=== PATIENT | male | born 2000 | race Caucasian/White ===

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

== ENCOUNTER 2020-07-06 14:36 | Outpatient (CLI) | payer MEDICAID | END 2020-07-06 23:59 | disposition home or self-care (01) | LOC: RT 14:36 | PROVIDERS: ATTEND Pediatrics | DX: R00.9 Unspecified abnormalities of heart beat (principal) | CPT/HCPCS: 93005 ==

== ENCOUNTER 2022-08-09 22:39 | Emergency (ER) | payer MEDICAID ==
--- NOTE | 2022-08-09 23:30 | ED Physician Documentation ---
PD HPI CHEST PAIN - Stated complaint Stated Complaint: CHEST TIGHTNESS,SOA - Chief complaint Chief Complaint: Resp - History obtained from History obtained from: Patient - Additional information Additional information: The patient comes to the emergency department chief complaint of episode of chest tightness and shortness of breath with tingling in his hands on and off for the last couple days. Patient has history of asthma, has not used his inhaler. No fever or chills. No edema in his lower extremities. No calf pain. The patient is otherwise fairly healthy. He does have a history of anxiety and is felt somewhat anxious but this does not feel like his usual anxiety attacks. No other complaints at this time. Review of Systems Constitutional: reports: Reviewed and negative Eyes: reports: Reviewed and negative Ears: reports: Reviewed and negative Nose: reports: Reviewed and negative Throat: reports: Reviewed and negative Cardiac: reports: Chest pain / pressure Respiratory: reports: Dyspnea GI: reports: Reviewed and negative : reports: Reviewed and negative Skin: reports: Reviewed and negative Musculoskeletal: reports: Reviewed and negative Neurologic: reports: Reviewed and negative Psychiatric: reports: Reviewed and negative Endocrine: reports: Reviewed and negative Immunocompromised: reports: Reviewed and negative PD PAST MEDICAL HISTORY - Past Medical History Respiratory: Asthma - Past Surgical History Past Surgical History: Yes HEENT: Myringotomy (tubes) - Present Medications Home Medications: Ambulatory Orders Medication Instructions Recorded Confirmed Albuterol Sulfate [Albuterol PRN 05/09/14 05/09/14 Sulfate Hfa] - Allergies Allergies/Adverse Reactions: Allergies Allergy/AdvReac Type Severity Reaction Status Date / Time amoxicillin [Amoxicillin] Allergy Rash Verified 08/09/22 22:54 Penicillins Allergy Rash Verified 08/09/22 22:54 - Social History Does the pt smoke?: No Smoking Status: Never smoker Does the pt drink ETOH?: No Does the pt have substance abuse?: No - Immunizations Immunizations are current?: Yes PD ED PE NORMAL - Vitals Vital signs reviewed: Yes - General General: Alert and oriented X 3, No acute distress, Well developed/nourished - HEENT HEENT: Atraumatic, PERRL, EOMI, Moist mucous membranes - Neck Neck: Supple, no meningeal sign - Cardiac Cardiac: RRR, No murmur, Strong equal pulses - Respiratory Respiratory: No respiratory distress, Clear bilaterally - Abdomen Abdomen: Soft, Non tender, Non distended - Derm Derm: Normal color, Warm and dry, No rash - Extremities Extremities: No deformity, No edema, No calf tenderness / cord - Neuro Neuro: Alert and oriented X 3 - Psych Psych: Normal mood, Normal affect Results - Vitals Vitals: Oxygen O2 Source Room air - EKG (time done) 2303 Rate: Rate (enter#) (51) Rhythm: NSR [place]: Normal Intervals: Normal IN QRS: Normal Ischemia: Normal ST segments, Non specific changes Compare to prior EKG: Old EKG unavailable Computer interpretation: Agree with computer - Rads (name of study) Chest x-ray Radiology: Final report received, See rad report PD Medical Decision Making - ED course Complexity details: reviewed results, re-evaluated patient, considered differential, d/w patient ED course: I discussed with the patient that His level of risk for coronary artery disease is exceedingly low, and his EKG and chest x-ray look good. We have discussed that the patient does not have a strong likelihood indicators for any of the ot her emergent causes of chest discomfort. We have discussed home management of the symptoms, the need for follow-up, and the usual indications for return. Departure - Departure Disposition: 01 Home, Self Care Clinical Impression: Anxiety Chest pain Qualifiers: Chest pain type: unspecified Qualified Code(s): R07.9 - Chest pain, unspecified Condition: Stable Instructions: ED Chest Pain NonCardiac, ED Heart Disease Risk Factors, ED Panic Attack Comments: Your EKG and chest x-ray both look great. There is no evidence of a serious or emergent cause of your chest discomfort at this time. It is not clear exactly what is causing the symptoms, although certainly, anxiety could be a very possible explanation. As we discussed, you are very low risk for both a heart attack and blood clot formation, just based on your age alone, but even aside from that, based on your lack of other risk factors as well. Any of the emergent causes of chest pain generally declare themselves very quickly, often with devastating consequences. As such, it would be nearly impossible for your symptoms to go on for months on and without a serious decline in your health, and without any changes on your x-ray or EKG. At this point, as we have discussed, you need to follow-up with your primary care physician to talk about where to go from here. It may be that you need to be on some medication for anxiety, or it may be that your doctor will recommend a stress test and an endoscopy, which would be the next 2 tests to evaluate chest pain after being seen in the emergency department. Again, given your very low risk for coronary artery disease, a stress test is unlikely to yield any helpful information in your age group, as it will almost certainly be negative, but this is something that you can discuss with your primary doctor if you wish. Discharge Date/Time: 08/10/22 00:01
--- NOTE | 2022-08-09 23:40 | XRAY Report ---
PROCEDURE: Chest 1 View X-Ray INDICATIONS: dyspnea TECHNIQUE: One view of the chest was acquired. COMPARISON: None. FINDINGS: Surgical changes and devices: None. Lungs and pleura: No pleural effusions or pneumothorax. Lungs are clear. Mediastinum: Mediastinal contours appear normal. Heart size is normal. Bones and chest wall: No suspicious bony lesions. Overlying soft tissues appear unremarkable. IMPRESSION: 1. No acute cardiopulmonary disease. Reviewed by: Lukas Quiroga MD on 08/09/2022 11:39 PM [facility] Approved by: Lukas Quiroga MD on 08/09/2022 11:39 PM [facility] Station ID: [id number]
[2022-08-10 00:06] VITALS: BP 128/81
== END 2022-08-10 00:01 | disposition home or self-care (01) ==
LOC: ED 22:39
DX: F41.9 Anxiety disorder, unspecified (principal); R07.9 Chest pain, unspecified
CPT/HCPCS: 93005; 99283